=== PATIENT | male | born 1945 | race Caucasian/White ===

== ENCOUNTER → 2017-11-27 | Outpatient (CLI) | payer MEDICARE, OTHER ==
[~2017-11-27] MED LIST: AMLODIPINE BESY10 MG PO; ASPIRIN EC81 M1 PO; CARVEDILOL3.125 MG PO; CARVEDILOL6.25 MG PO; FLOMAX0.4 MG PO; HYDRALAZINE 2525 MG PO; HYDROCHLOROTHIA25 M2 PO; HYDROCODONE-AP1 EAC6 PO; LASIX 40 MG TAB40 M1 PO; LISINOPRIL20 MG; LISINOPRIL40 MG PO; MOBIC7.5 M1 PO; NORCO 5-325 TA1 EACH PO; PACERONE 200 M200 M1 PO; PACERONE100 MG PO; PERCOCET 5-3251 EACH PO; POTASSIUM CHLO20 ME1 PO; ROBAXIN 750 MG750 MG PO; ZOCOR 20 MG TAB20 M1 PO
[2017-11-27 09:25] LABS: ALBUMIN 4.3 g/dL (3.4-5.0); DIRECT BILIRUBIN 0.2 mg/dL (<0.1-0.3); TOTAL BILIRUBIN 0.6 mg/dL (<0.1-1.0); TOTAL PROTEIN 7.5 g/dL (6.4-8.2)
== END ==
LOC: M.RAD 07:56
PROVIDERS: Internal Medicine Cardiovascular Disease
DX: Z79.899 Other long term (current) drug therapy (principal)

== ENCOUNTER 2018-02-19 15:50 | Inpatient (IN) | payer MEDICARE, OTHER ==
[~2018-02-19] VITALS: Ht 175.3 cm; Wt 68.0 kg
[~2018-02-19 15:50] MED LIST changes: -FLOMAX0.4 MG PO; -HYDRALAZINE 2525 MG PO; -HYDROCHLOROTHIA25 M2 PO; -HYDROCODONE-AP1 EAC6 PO; -LISINOPRIL20 MG
[2018-02-19 15:53] VITALS: BP 148/67
[2018-02-19] MEDS ORDERED: HYDROCHLOROTHIA25 M2 PO (16:01)
[2018-02-19] MEDS ORDERED: HYDRALAZINE 2525 MG PO (16:02)
--- NOTE | 2018-02-19 16:07 | NUR ---
PT HAS HERNIA THAT RUNS FROM LLQ OF ABDOMEN, NEXT TO PENIS, DOWN INTO RIGHT TESTICLE. SIZE LARGER THAN SOFTBALL.
--- NOTE | 2018-02-19 16:26 | NUR ---
PILLOW PLACED UNDER SCROTUM FOR COMFORT PER PT REQUEST
--- NOTE | 2018-02-19 16:42 | NUR ---
REQUESTED URINE SAMPLE FROM PT. PT STATES HE DOES NOT HAVE TO URINATE. PT GIVEN URINAL AND ASKED TO HIT CALL LIGHT ONCE HE GOES. PT DOES HAVE FLUIDS INFUSING W/O.
[2018-02-19 16:47] LABS: HEMOGLOBIN 12.5 gm/dL (14.0-18.0); MCV 87.8 fL (80.0-100.0); MPV 9.1 fl. (7.2-11.1); NUCLEATED RBCS 0 /100WBC; PLATELET COUNT* 144 thou/uL (150-400); RBC 4.32 mil/uL (4.50-6.00); RDW-CV 14.1 % (10.5-14.5)
[2018-02-19 16:54] LABS: ANION GAP 11 mmol/L (7-16); BUN 21 mg/dL (7-18); CALCIUM 8.8 mg/dL (8.5-10.1); CHLORIDE 106 mmol/L (98-107); CO2 23 mmol/L (21-32); CREATININE 1.3 mg/dL (0.6-1.3); GLUCOSE 123 mg/dL (70-99); POTASSIUM 3.9 mmol/L (3.5-5.1); SODIUM 140 mmol/L (136-145)
[2018-02-19 17:01] LABS: ALBUMIN 4.2 g/dL (3.4-5.0); ALKALINE PHOSPHATASE 87 U/L (46-116); LIPASE 193 U/L (73-393); SGOT 19 U/L (15-37); SGPT 24 U/L (30-65); TOTAL BILIRUBIN 0.5 mg/dL (<0.1-1.0); TOTAL PROTEIN 7.4 g/dL (6.4-8.2); TROPONIN-I LEVEL <0.06 ng/mL (<0.06)
[2018-02-19 17:06] LABS: ABSOLUTE LYMPHOCYTES 0.3 thou/uL (0.8-5.3); ABSOLUTE MONOCYTES 0.3 thou/uL (0.0-1.2); ABSOLUTE NEUTROPHILS 7.4 thou/uL (1.6-8.1); PLATELET ESTIMATE ADEQUATE
[2018-02-19 19:58] VITALS: BP 133/62
[2018-02-20] VITALS (8 sets, daily range): BP systolic 110–142; BP diastolic 53–69
--- NOTE | 2018-02-20 06:07 | NUR ---
ASSESSMENT COMPLETE. PT CAME TO FLOOR POST OP AT 0015. VITALS STABLE. PT ON CAPNO WITH 2L PER NC. DRESSING TO RIGHT GROIN C/D/I. RIGHT GROIN AND SCROTUM NOTED TO BE SWOLLEN. PT IS ON TELE MONITOR, NSR. PT HAS PIERRE WITH WITH ADEQUATE OUTPUT. PT HAS IV IN LEFT AC, SALINE LOCKED. PT DENIES PAIN. PT EATING ICE CHIPS. SEE ASSESSMENT AND VITALS FOR OTHER DETAILS. CALL LIGHT WITHIN REACH, WILL CONTINUE PLAN OF CARE
--- NOTE | 2018-02-20 09:14 | EKG ---
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1945 Requested By: Cecy Ambrocio Order Number: [id number] MD: Patric Krishna Measurements Intervals [place] Rate: 63 P: 25 AR: 217 QRS: 94 QRSD: 129 T: 53 QT: 489 QTc: 501 Interpretive Statements Sinus rhythm Borderline prolonged AR interval RBBB Repol abnrm suggests ischemia, diffuse leads Compared to ECG 07/17/2006 08:38:42 Right bundle-branch block now present Early repolarization now present Possible ischemia now present Atrial fibrillation no longer present Right-axis deviation no longer present Myocardial infarct finding no longer present Electronically Signed On 02-20-2018 9:14:30 CDT by Patric Krishna [email or web address] <ELECTRONICALLY SIGNED> By: Patric Krishna MD, [facility] 02/20/18 0914 1615 1615 Patric Krishna MD, [facility] /EPI
[2018-02-20] MEDS ORDERED: HYDROCODONE-AP1 EAC6 PO (11:40)
--- NOTE | 2018-02-20 12:20 | NUR ---
MET WITH PT TO DISCUSS HOME SITUATION/DC PLANNING. PT LIVES WITH . HE WORKS OUTSIDE THE HOME AND IS NORMALLY INDEPENDENT AND ACTIVE. DENIES ANY DC NEEDS. PLANS TO GO HOME LATER.
--- NOTE | 2018-02-20 18:10 | NUR ---
PATIENT OK TO DISCHARGE IF TOLERATING REG DIET AND VOIDING AFTER CATHETER DC. CATHETER DC'D AROUND 11AM, PATIENT UP TO ATTEMPT TO VOID MULTIPLES TIMES WITH NO SUCCESS. AFTERNOON BLADDER SCAN SHOWING >200. DR. PORTILLO NOTIFIED NO NEW ORDERS. PATIENT SCANNED THIS EVENING AND SHOWING >900MLS. DR. JONES NOTIFIED AND ORDERS FOR STRAIGHT CATH X 1 AND PIERRE PLACEMENT IS LATER UNABLE TO VOID OR SCAN >350. STRAIGHT CATH AMOUNT 600MLS. FLOMAX TO BEGIN AT BEDTIME. PATIENT SCROTUM REMAINS SWOLLEN, ICED AND ELEVATED. NO COMPLAINTS OF PAIN.
--- NOTE | 2018-02-20 21:00 | NUR ---
PT ABLE TO VOID 100 ML YELLOW URINE, STILL FEELING UNCOMFORTABLE, BLADDER SCAN PERFORMED AND RESULT >999 MLS. PIERRE CATH 16FR INSERTED WITHOUT DIFFICULTY AND SECURED WITH STATLOCK TO LEG. IMMEDIATE RETURN CLEAR YELLOW URINE AND PT VOICES RELIEF. WILL CONTINUE TO MONITOR. CALL LITE IN EASY REACH.
[2018-02-21 03:21] VITALS: BP 105/54
--- NOTE | 2018-02-21 07:24 | NUR ---
PT SLEPT FAIRLY WELL OVERNIGHT AFTER PIERRE PLACE. PIERRE DRAINING 1750 YELLOW URINE. DRSG CDI TO R GROIN. SCROTUM SWOLLEN, REFUSING ICE PACK AND SCROTAL ELEVATION. LAC SL, TORADOL GIVEN ORDERED. BP MEDS HELD THIS MORNING-NOT INDICATED. NO LBS THIS MORNING. TELE SR. ABLE TO USE CALL LITE AND MAKE NEEDS KNOWN.
[2018-02-21 08:40] VITALS: BP 87/49
[2018-02-21 11:47] VITALS: BP 125/57
--- NOTE | 2018-02-21 15:21 | NUR ---
PATIENT IS ALERT AND ORIENTED TODAY VERY PLEASANT TODAY UP AD MARTINEZ IN ROOM. IGNACIO WAS DC'D TODAY AND PATIENT HAS VOIDED SEVERAL TIMES SINCE THEN. SOME COMPLAINTS OF PAIN BUT HAS NOT WANTED ANY PAIN MEDICATIONS. FAMILY AT BEDSIDE MOST OF THE DAY. VITAL SIGNS STABLE ON ROOM AIR. PATIENT IS BEING DISCHARGED TO HOME, DISCHARGE INSTRUCTIONS, PRESCRIPTIONS GIVEN AND QUESTIONS ANSWERED FOR PATIENT AND SPOUSE. LEFT VIA WHEELCHAIR WITH BELONGINGS AND .
--- NOTE | 2018-02-24 20:52 | OP ---
[address] [address] OPERATIVE REPORT Name: ANDERSKRAL Marielle Room: [address] IN .R.#: [id number] Admission: 02/19/18 Attend Phys: Julio César Cisse Discharge: 02/21/18 Date of : 49 Report #: [id number] THIS REPORT FOR: //name// CC: NILDA physician/PCP Saleem Juárez DATE OF SERVICE: 02/19/2018 PREOPERATIVE DIAGNOSIS: Incarcerated right inguinal hernia containing obstructed sigmoid colon. POSTOPERATIVE DIAGNOSIS: Incarcerated right inguinal hernia containing obstructed sigmoid colon. FINDINGS: Hugely distended incarcerated right inguinal hernia with loop of redundant sigmoid colon. SURGEON: Alberta Hartmann DO. COSURGEON: Vira Westfall, PGY5. RN NEUROLOGY: None. PROCEDURE PERFORMED: Right inguinal hernia repair with mesh. ANESTHESIA: General endotracheal and local. ESTIMATED BLOOD LOSS: 25 mL. DRAINS: None. SPECIMENS: Hernia sac. COMPLICATIONS: None. CONDITION: Stable. DISPOSITION: PACU to floor. HISTORY OF PRESENT ILLNESS: The patient is a very pleasant 72-year-old gentleman who presented to the ER this afternoon with the complaint of an enlarging bulge in his right groin, which was causing him significant pain associated with nausea and vomiting. He reported that he had had right inguinal hernia for some time, but had never caused him any pain. Today, he was doing some yard work and then had an acute change. On physical exam, he had an obvious incarceration of a large right inguinal hernia. CT scan had been [facility] [address] [place] [address] OPERATIVE REPORT Name: KARL MCNAMARA Room: [address] M.R.#: [id number] Admission: 02/19/18 Attend Phys: Julio César Cisse Discharge: 02/21/18 Date of : 49 Report #: [id number] completed by the ER, which did show a redundant loop of sigmoid colon incarcerated in the inguinal hernia. The patient was then consented for repair of this inguinal hernia with possible mesh. Risks discussed included bleeding, infection, pain, scar formation, injury to bowel, need for bowel resection, injury to the bladder, injury to the cord structures, need for an exploratory laparotomy, possibility of recurrence, mesh complications and risks of general anesthesia. The patient understood these risks and elected to proceed. PROCEDURE NOTE: The patient was brought to the operating room. He was laid supine on the transport table. He was unable to completely lie flat, so he was intubated on the transport table by Anesthesia. He was then gently transitioned to the OR table. SCDs were placed to bilateral lower extremities. Ancef was given in the perioperative period. Rajput catheter was placed utilizing sterile technique. While patient was freshly paralyzed, he was also placed in Trendelenburg. With very gentle manipulation of the obvious incarceration, I was eventually able to get partial reduction of the sigmoid colon. The abdomen was then prepped and draped in standard sterile fashion. Timeout was performed to verify patient and procedure. We began by marking out the right ASIS and the right pubic tubercle. An incision was marked out between these two structures. A 10 mL of 0.5% Marcaine were injected in the planned incision. Incision was made with a 10 blade. Cautery was used for hemostasis. Then, using a combination of blunt and cautery dissection, we dissected down until the external abdominal oblique fascia was identified. One small vein was doubly clamped and ligated with a 3-0 silk suture. The external abdominal oblique fascia was tented between two Tatum clamps and was gently incised using Metzenbaums taking care to avoid any underlying structures. Very gentle blunt finger dissection was then used to clear the inferior surface of the external abdominal oblique until we reached the pubic tubercle. At this point, a very large hernia sac was identified. Again, I had been able to reduce the sigmoid colon while the patient was freshly paralyzed. There is no sign of any bowel remaining in the hernia sac. With very gentle traction upon the hernia sac, we were able to completely reduce it from the scrotum. Then, using very gentle blunt finger dissection, a window was created on the pubic tubercle under the hernia sac and the cord structures. Two DeBakeys were then used to strip the cremasteric fibers towards the internal ring. At this point, we were then able to identify the cord structures. They were very closely adherent to our large hernia sac, but we were finally able to dissect these away from the hernia sac. Gloria drain was then put around the cord structures and these were protected from any injury. The hernia sac was then completely cleared of any further adhesions holding it into the scrotum and the groin. As it was a very large hernia sac, it was then decided to ligate the sac close to the hernia defect. Tatum clamp was placed across the neck of the sac. The sac was then sutured in a running fashion using a 3-0 Vicryl. The remainder of the sac was ligated and was handed off specimen. The stump of the sac was then allowed to return into the abdomen. It reduced without difficulty. Our inguinal floor was then closely inspected. There was no sign of any further hernia defects, there was [facility] [address] [place] [address] OPERATIVE REPORT Name: KARL MCNAMRAA Room: [address]#: [id number] Admission: 02/19/18 Attend Phys: Julio César Cisse Discharge: 02/21/18 Date of : 49 Report #: [id number] no sign of any indirect defects, and large hernia sac was a large direct defect. The cord structures were cleared of any further adhesions. A ProGrip mesh was then brought on the field and was cut to fit within the inguinal floor. It was then deployed along the pubic tubercle under the cord structures. Two limbs were then brought to across laterally to the internal ring. This provided excellent coverage of the entirety of the floor of the inguinal canal. The ProGrip mesh was then sutured into place using multiple interrupted stitches of 3-0 Prolene. An additional 10 mL of 0.5% Marcaine were injected on the pubic tubercle. Our Sylvia drain was removed and the cord structures were allowed to fall into their anatomical position. Our newly formed internal ring was closely inspected and did not appear to be too tight around the cord structures. The external abdominal oblique fascia was then closed over our inguinal canal using a running stitch of 3-0 Vicryl. An additional 10 mL of 0.5% Marcaine were injected along the external abdominal oblique. Wound was then closed in layered fashion using deep and superficial stitches of 3-0 Vicryl in inverted interrupted fashion. Skin wound was closed with a running 4-0 Monocryl. A 10 mL of 0.5% Marcaine were injected along the skin and the final 10 mL of 0.5% Marcaine were injected one fingerbreadth in front of the ASIS in a block type fashion. Skin was then cleansed and covered with Mastisol, Steri-Strips, 4 x 4's, and a Tegaderm. The testicle was palpated and was gently pulled down into the scrotum into its anatomical position. The patient was then allowed to awaken from anesthesia and was extubated and transported to the recovery room with no further difficulties. Counts were correct at the conclusion of the case. Rajput catheter was left in place. <ELECTRONICALLY SIGNED> By: Alberta Hartmann DO 02/24/18 2052 2331 0003Chrainer Hartmann DO /nt
== END 2018-02-21 15:24 | disposition home or self-care (01) | DRG 351 ==
LOC: M.ERS 15:50 → M.3W 19:14 → M.TBA-ER 19:14 → M.3W 02-20 00:15
PROVIDERS: Physician Assistant; ADMIT Internal Medicine
PROC: 0YU50JZ Supplement Right Inguinal Region with Synthetic Substitute, Open Approach (ICD-10-PCS; principal; 2018-02-19)
DX: K40.30 Unilateral inguinal hernia, with obstruction, without gangrene, not specified as recurrent (principal); J98.11 Atelectasis; E78.5 Hyperlipidemia, unspecified; I11.9 Hypertensive heart disease without heart failure; I48.91 Unspecified atrial fibrillation; Z79.899 Other long term (current) drug therapy; Z87.891 Personal history of nicotine dependence

== ENCOUNTER 2018-04-09 22:05 | Emergency (ER) | payer MEDICARE, OTHER ==
[~2018-04-09] VITALS: Ht 172.7 cm; Wt 61.7 kg
[~2018-04-09 22:05] MED LIST changes: +HYDRALAZINE 2525 MG PO; +HYDROCHLOROTHIA25 M2 PO; +HYDROCODONE-AP1 EAC6 PO
[2018-04-09] MEDS ORDERED: LISINOPRIL20 MG (22:25)
[2018-04-09 23:09] LABS: URINE BILIRUBIN NEGATIVE (Negative); URINE BLOOD NEGATIVE (Negative); URINE CLARITY CLEAR; URINE COLOR YELLOW; URINE GLUCOSE-RANDOM NEGATIVE (Negative); URINE KETONES NEGATIVE (Negative); URINE LEUKOCYTES-REFLEX NEGATIVE (Negative); URINE NITRITE-REFLEX NEGATIVE (Negative); URINE PROTEIN NEGATIVE (Negative); URINE UROBILINOGEN 0.2 E.U./dl (0.2-1.0)
[2018-04-09 23:10] LABS: CALCIUM 8.7 mg/dL (8.5-10.1); CREATININE 1.1 mg/dL (0.6-1.3)
[2018-04-10] MEDS ORDERED: FLOMAX0.4 MG PO (01:04)
[2018-04-10 01:40] VITALS: BP 120/54
== END 2018-04-10 01:44 | disposition home or self-care (01) ==
LOC: M.ERS 22:05
PROVIDERS: Emergency Medicine
DX: R33.9 Retention of urine, unspecified (principal); E78.5 Hyperlipidemia, unspecified; I10 Essential (primary) hypertension; I48.91 Unspecified atrial fibrillation

== ENCOUNTER → 2018-05-24 | Outpatient (CLI) | payer MEDICARE, OTHER ==
[~2018-05-24] MED LIST changes: +FLOMAX0.4 MG PO; +LISINOPRIL20 MG
[2018-05-24 15:08] LABS: ALBUMIN 4.1 g/dL (3.4-5.0); DIRECT BILIRUBIN 0.2 mg/dL (<0.1-0.3); TOTAL BILIRUBIN 0.5 mg/dL (<0.1-1.0); TOTAL PROTEIN 7.3 g/dL (6.4-8.2)
== END ==
LOC: M.LAB 14:25
PROVIDERS: Internal Medicine Cardiovascular Disease
DX: I48.91 Unspecified atrial fibrillation (principal); I10 Essential (primary) hypertension; E78.5 Hyperlipidemia, unspecified

== ENCOUNTER → 2018-12-10 | Outpatient (CLI) | payer MEDICARE, OTHER ==
[2018-12-10 10:41] LABS: ALBUMIN 3.9 g/dL (3.4-5.0); DIRECT BILIRUBIN 0.1 mg/dL (<0.1-0.3); TOTAL BILIRUBIN 0.4 mg/dL (<0.1-1.0); TOTAL PROTEIN 7.3 g/dL (6.4-8.2)
== END ==
LOC: M.RAD 09:58
PROVIDERS: Internal Medicine Cardiovascular Disease
DX: Z79.899 Other long term (current) drug therapy (principal)

== ENCOUNTER → 2019-06-04 | Outpatient (CLI) | payer MEDICARE, OTHER | LOC: M.LAB 06:07 | DX: E87.6 Hypokalemia (principal) ==

== ENCOUNTER → 2019-06-11 | Outpatient (CLI) | payer MEDICARE, OTHER ==
[2019-06-11 11:30] LABS: ALBUMIN 3.9 g/dL (3.4-5.0); DIRECT BILIRUBIN 0.2 mg/dL (<0.1-0.3); TOTAL BILIRUBIN 0.7 mg/dL (<0.1-1.0); TOTAL PROTEIN 7.3 g/dL (6.4-8.2)
== END ==
LOC: M.RAD 10:42
PROVIDERS: Internal Medicine Cardiovascular Disease
DX: I48.91 Unspecified atrial fibrillation (principal); Z79.899 Other long term (current) drug therapy

== ENCOUNTER → 2020-01-01 | Outpatient (CLI) | payer MEDICARE, OTHER ==
[2020-01-01 14:45] LABS: DIRECT BILIRUBIN 0.2 mg/dL (<0.1-0.3); TOTAL BILIRUBIN 0.5 mg/dL (<0.1-1.0); TOTAL PROTEIN 7.5 g/dL (6.4-8.2)
== END ==
LOC: M.LAB 14:03
PROVIDERS: Internal Medicine Cardiovascular Disease
DX: J84.89 Other specified interstitial pulmonary diseases (principal); I48.91 Unspecified atrial fibrillation; Z79.899 Other long term (current) drug therapy

== ENCOUNTER → 2020-09-08 | Outpatient (CLI) | payer MEDICARE, OTHER ==
[2020-09-08 14:03] LABS: ALBUMIN 3.9 g/dL (3.4-5.0); DIRECT BILIRUBIN 0.2 mg/dL (<0.1-0.3); TOTAL BILIRUBIN 0.5 mg/dL (<0.1-1.0); TOTAL PROTEIN 7.4 g/dL (6.4-8.2)
== END ==
LOC: M.LAB 12:50
PROVIDERS: ATTEND Internal Medicine Cardiovascular Disease
DX: I48.91 Unspecified atrial fibrillation (principal); J98.4 Other disorders of lung; Z79.899 Other long term (current) drug therapy

== ENCOUNTER → 2021-03-29 | Outpatient (CLI) | payer MEDICARE, OTHER ==
[2021-03-29 10:37] LABS: ALBUMIN 4.2 g/dL (3.4-5.0); DIRECT BILIRUBIN 0.1 mg/dL (<0.1-0.3); TOTAL BILIRUBIN 0.3 mg/dL (<0.1-1.0); TOTAL PROTEIN 7.7 g/dL (6.4-8.2)
== END ==
LOC: M.LAB 09:48
PROVIDERS: ATTEND Internal Medicine Cardiovascular Disease
DX: I48.91 Unspecified atrial fibrillation (principal); Z79.899 Other long term (current) drug therapy

== ENCOUNTER → 2021-10-10 | Outpatient (CLI) | payer MEDICARE, OTHER ==
[2021-10-10 13:16] LABS: ALBUMIN 3.8 g/dL (3.4-5.0); DIRECT BILIRUBIN 0.2 mg/dL (<0.1-0.3); TOTAL BILIRUBIN 0.6 mg/dL (<0.1-1.0); TOTAL PROTEIN 7.1 g/dL (6.4-8.2)
== END ==
LOC: M.LAB 12:34
PROVIDERS: ATTEND Nurse Practitioner
DX: J84.10 Pulmonary fibrosis, unspecified (principal); Z79.899 Other long term (current) drug therapy

== ENCOUNTER → 2021-10-21 | Outpatient (CLI) | payer MEDICARE, OTHER ==
[2021-10-21] VITALS (7 sets, daily range): BP systolic 98–124; BP diastolic 62–75
[~2021-10-21] VITALS: Ht 172.7 cm; Wt 54.4 kg
[~2021-10-21] MED LIST changes: -LISINOPRIL20 MG; +LISINOPRIL20 MG PO
[2021-10-21 07:36] LABS: HEMATOCRIT 30.4 % (42.0-52.0); HEMOGLOBIN 9.6 gm/dL (14.0-18.0); MCH 23.5 pg (26.0-34.0); MCHC 31.6 g/dL (28.0-37.0); MCV 74.3 fL (80.0-100.0); MPV 8.3 fl. (7.2-11.1); RBC 4.09 mil/uL (4.50-6.00); RDW-CV 16.7 % (10.5-14.5); WBC 4.7 thou/uL (4.0-11.0)
[2021-10-21 07:45] LABS: CALCIUM 8.6 mg/dL (8.5-10.1); CREATININE 1.3 mg/dL (0.6-1.3); POTASSIUM 4.1 mmol/L (3.5-5.1)
[2021-10-21 07:56] LABS: INR 1.1; PROTIME 11.1 Seconds (9.20-11.50)
--- NOTE | 2021-10-21 11:21 | EKG ---
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1945 Requested By: Aroldo Benz Order Number: [id number] Reading MD: Aroldo Benz Measurements Intervals [place] Rate: 42 P: 52 NV: 259 QRS: 73 QRSD: 126 T: QT: 566 QTc: 473 Interpretive Statements Sinus rhythm with 2:1 AV block IVCD, consider atypical RBBB Anterior infarct, old Repol abnrm suggests ischemia, lateral leads Lead(s) III were not used for morphology analysis Compared to ECG 02/19/2018 16:15:12 2:1 av block noted Possible ischemia still present Electronically Signed On 10-21-2021 11:21:15 COOKER SULFATE by Aroldo Benz [email or web address] <ELECTRONICALLY SIGNED> By: Aroldo Benz MD, [facility] 10/21/21 1121 Aroldo Benz MD, [facility] /EPI
--- NOTE | 2021-10-21 15:30 | EKG ---
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1945 Requested By: Aroldo Benz Order Number: [id number] Allison MD: Aroldo Benz Measurements Intervals [place] Rate: 72 P: 93 MS: 264 QRS: 27 QRSD: 168 T: QT: 511 QTc: 560 Interpretive Statements Atrial-ventricular dual-paced rhythm No further analysis attempted due to paced rhythm Compared to ECG 10/21/2021 07:47:04 paced rhythm now noted Electronically Signed On 10-21-2021 15:29:57 [employer] WORK[employer] by Aroldo Benz [email or web address] <ELECTRONICALLY SIGNED> By: Aroldo Benz MD, [facility] 10/21/21 1529 1420 1420 Aroldo Benz MD, [facility] /EPI
--- NOTE | 2021-10-21 15:30 | EKG ---
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1945 Requested By: Aroldo Benz Order Number: [id number] Reading MD: Aroldo Benz Measurements Intervals [place] Rate: 84 P: 123 DC: 183 QRS: 124 QRSD: 167 T: 148 QT: 487 QTc: 576 Interpretive Statements Atrial-ventricular dual-paced rhythm No further analysis attempted due to paced rhythm Compared to ECG 10/21/2021 14:20:54 No significant changes Electronically Signed On 10-21-2021 15:30:06 AUT[employer] QTP TESTER by Aroldo Benz [email or web address] <ELECTRONICALLY SIGNED> By: Aroldo Benz MD, [facility] 10/21/21 1530 1422 1422 Aroldo Benz MD, [facility] /EPI
--- NOTE | 2021-10-26 08:38 | CARD ---
[address] [address] CARDIAC CATH REPORT Name: KARL MCNAMARA Room: [facility] Antoni.#: [id number] Admission: 10/21/21 Attend Phys: Aroldo Benz MD, F Discharge: Date of : 49 Report #: [id number] THIS REPORT FOR: cc: FAM - No family physician/PCP FAM - No family physician/PCP Aroldo Benz MD [facility] ~ ADDENDUM APPROVED REPORT Study performed: 10/21/2021 08:07:05 Patient Status: Out-Patient Room #: Event Personnel: MD Marry Pérez, RT Maru(RBethany Chamberlain RN Exam: Insertion of Dual Chamber Permanent Pacemaker, and cardioversion Indications: Mobitz I (Wenkebach) The patient is a 76 year-old male with a history of Symptomatic Bradycardia. Patient Info Antiplatelet Therapy: aspirin Conscious Sedation Fentanyl 75.0 mcg Implanted Devices: permanent dual chamber MRI compatible Biotronic pacemaker and leads. Procedure The patient underwent informed consent. We discussed the details of the procedure including the risks, which include, but not limited to bleeding, infection, vascular damage, cardiac perforation, and pneumothorax. He understood these risks and was willing to proceed. As such, he was brought to the EP/Cardiac Catheterization laboratory in a fasting and sedated state and prepped and draped in a sterile fashion, received IV antibiotics prior to initiation of the procedure and a venogram was performed showing patency of the left axillary vein. The patient underwent conscious sedation, with no related complications. The patient was brought to the EP/Cardiac Catheterization laboratory and the left chest and shoulder were prepped and draped in [place] [address] CARDIAC CATH REPORT Name: ANDERSKARL YOKASTA Room: [facility]#: [id number] Admission: 10/21/21 Attend Phys: Aroldo Benz MD, F Discharge: Date of : 49 Report #: [id number] During this case, Fluoroscopy and low osmolar contrast were used for imaging. IV conscious sedation was used throughout procedure with appropriate monitoring and was performed in the presence of a registered nurse who was an independent trained observer other than the physician performing the procedure. The left subclavian region was infiltrated with 2% Lidocaine subcutaneous anesthesia. A transverse incision was made in the left upper chest cavity. The subcutaneous pocket was formed via blunt dissection. Percutaneous venous access was achieved and an introducer sheath was inserted into the left Subclavian vein. Sheaths were positions using the modified Seldinger technique Through the introducer sheaths the atrial and ventricular lead wires were positioned in the right atrial appendage and right ventricular apex respectively. Utilizing fluoroscopic guidance, the atrial and ventricular lead wires were advanced over the wires and positioned in the right atria and right ventricle respectively. Capturing and sensing thresholds were verified. Electrode Parameters P Wave: 0.8 mv R Wave: 6.2 mv Atrial Threshold: 0.8 V @ 0.4 ms Ventricular Threshold: 1.4 V ! 0.4 ms Atrial Resistance: 457 ohm Ventricular Resistance: 638 ohm During insertion of the pacing leads, the patient developed atrial flutter at 140 bpm. After conscious sedation, the patient was cardioverted to sinus rhythm with 50J of synchronized energy. Dual Chamber The atrial and ventricular leads were then secured using 0 silk sutures. The subcutaneous pocket was irrigated with ancef antibiotic solution.The atrial and ventricular leads were attached to the appropriate receptacles on the pulse generator and set screws firmly tightened to insure adequate contact and stability. Generator Change A new lead was inserted/positioned into the rightleft ventricle. The lead was attached to the appropriate receptacle on the new pulse generator and setscrews firmly tightened to insure adequate contact [place] [address] CARDIAC CATH REPORT Name: ANDERSKARL Room: [facility]#: [id number] Admission: 10/21/21 Attend Phys: Aroldo Benz MD, F Discharge: Date of : 49 Report #: [id number] The lead and pulse generator were placed into the subcutaneous pocket. Sharp and sponge counts were confirmed to be correct. At this time the pocket was closed subcutaneously with a 0 Vicryl and the skin was closed with a 4.0 Vicryl. The operative site was dressed in sterile fashion with skin affix and the patient was transferred to the floor in stable condition. Complications The patient tolerated the procedure well and there were no complications associated with the procedure. Due to excessive oozing in the pocket, the pocket was irrigated with D-stat flowable solution. Findings Specimens Removed: No Estimated Blood Loss: less than 5cc Case start 08:55 Case end 11:00 Conclusion 1. successful placement of a dual chamber pacemaker and leads. 2. successful cardioversion of atrial flutter to sinus bradycardia. <ELECTRONICALLY SIGNED> By: Aroldo Benz MD, [facility] 10/26/2137 6 Dawale Benz MD, [facility] /INF
== END | disposition home or self-care (01) ==
LOC: M.CL 06:56
PROVIDERS: ATTEND Internal Medicine Cardiovascular Disease
DX: I44.1 Atrioventricular block, second degree (principal); R00.1 Bradycardia, unspecified; I48.91 Unspecified atrial fibrillation; I10 Essential (primary) hypertension; E78.5 Hyperlipidemia, unspecified; Z98.890 Other specified postprocedural states; Z79.899 Other long term (current) drug therapy; Z87.891 Personal history of nicotine dependence; Z79.01 Long term (current) use of anticoagulants